=== PATIENT | male | born 1935 | race Caucasian/White ===

== ENCOUNTER → 2024-03-24 07:00 | Outpatient (REF) | payer MEDICARE, SELFPAY ==
[2024-03-24 08:36] LABS: ALT (SGPT) 19 U/L (0-50); AST (SGOT) 27 U/L (17-59); Albumin 4.5 g/dl (3.5-5.0); Alkaline Phosphatase 99 U/L (38-126); Blood Urea Nitrogen 23 mg/dl (9-20); Calcium 10.3 mg/dl (8.4-10.2); Carbon Dioxide 25 mmol/L (22-30); Chloride 107 mmol/L (98-107); Glucose 99 mg/dl (70-99); HDL Cholesterol 60 mg/dl; LDL Cholesterol, Calculated 68 mg/dl; Potassium 4.5 mmol/L (3.5-5.1); Sodium 140 mmol/L (135-145); Total Bilirubin 0.8 mg/dl (0.2-1.3); Total Cholesterol 145 mg/dl (50-199); Total Protein 7.3 g/dl (6.3-8.2); Triglyceride 88 mg/dl (10-149); Very Low Density Lipoprotein 17 mg/dl (0-30); eGFR 52.84
[2024-03-24 08:42] LABS: Microalbumin, Random Urine 2.3 mg/dl (0.6-1.7)
[2024-03-24 09:57] LABS: Glycohemoglobin (HgbA1c) 6.1 % (4.0-5.6)
== END ==
LOC: REG 07:00
PROVIDERS: ATTENDING PHYSICIAN Nurse Practitioner Adult Health; FAMILY PHYSICIAN Internal Medicine Cardiovascular Disease
DX: E11.9 Type 2 diabetes mellitus without complications (principal); I10 Essential (primary) hypertension; E78.00 Pure hypercholesterolemia, unspecified; R80.9 Proteinuria, unspecified; Z00.00 Encounter for general adult medical examination without abnormal findings
CPT/HCPCS: 36415; 80053; 80061; 82043; 83036

== ENCOUNTER → 2024-11-30 08:33 | Outpatient (REF) | payer MEDICARE, SELFPAY ==
[2024-11-30 10:04] LABS: Albumin 4.3 g/dl (3.5-5.0); Carbon Dioxide 26 mmol/L (22-30); Total Protein 7.5 g/dl (6.3-8.2)
[2024-11-30 10:15] LABS: ALT (SGPT) 31 U/L (0-50); AST (SGOT) 29 U/L (17-59); Alkaline Phosphatase 117 U/L (38-126); Blood Urea Nitrogen 27 mg/dl (9-20); Chloride 108 mmol/L (98-107); Glucose 105 mg/dl (70-99); Glycohemoglobin (HgbA1c) 6.4 % (4.0-5.6); HDL Cholesterol 59 mg/dl; LDL Cholesterol, Calculated 63 mg/dl; Potassium 4.9 mmol/L (3.5-5.1); Sodium 142 mmol/L (135-145); Total Bilirubin 1.2 mg/dl (0.2-1.3); Total Cholesterol 143 mg/dl (50-199); Triglyceride 105 mg/dl (10-149); Very Low Density Lipoprotein 21 mg/dl (0-30); eGFR 52.84
== END ==
LOC: REG 08:33
PROVIDERS: ATTENDING PHYSICIAN Nurse Practitioner Adult Health; REFERRING PHYSICIAN Internal Medicine Cardiovascular Disease
DX: E11.9 Type 2 diabetes mellitus without complications (principal); E78.00 Pure hypercholesterolemia, unspecified
CPT/HCPCS: 36415; 80053; 80061; 83036

== ENCOUNTER 2024-12-27 08:48 | Inpatient (IN) | payer MEDICARE, SELFPAY ==
[2024-12-27 09:28] VITALS: BP 132/92
--- NOTE | 2024-12-27 09:30 | PTCARENOTE ---
pt admitted as direct admit to room 2255 for sotolol load. at bedside. pt oriented to room and unit. Pt ambulating in room without difficulty. weight and vitals obtained. PIV placed in right hand, lab work drawn and sent. pt placed on telemetry
monitor. vpaced with pvcs heart rate 70s. EKG obtained. lung sounds clear on room air, sat 98%. active bowel sounds, reports last BM this morning. voids in bathroom without difficulty. see worklist for full nursing assessment and interventions.
[2024-12-27 09:49] LABS: % Basophils 0.2 % (0-2); % Eosinophils 0.8 % (0-6); % Immature Granulocytes 0.5 % (0-0.5); % Lymphocytes 42.3 % (20.5-51.1); % Monocytes 8.6 % (1.7-9.3); % Neutrophils 47.6 % (42.2-75.2); Absolute Eosinophils 0.1 10^3/uL (0-0.7); Absolute Lymphocytes 3.5 10^3/uL (1.2-3.4); Absolute Monocytes 0.7 10^3/uL (0.1-0.6); Hematocrit 44.2 % (39.0-52.0); Hemoglobin 14.6 g/dL (13.0-18.0); Mean Corpuscular Hgb 30.7 pg (27.0-31.0); Mean Corpuscular Volume 92.9 fL (80.0-94.0); Nucleated Red Blood Cells % 0 % (-); Platelet Count 179 10^3/uL (130-400); Red Blood Cell Count 4.76 10^6/uL (4.70-6.10); White Blood Cell Count 8.3 10^3/uL (4.8-10.8)
[2024-12-27 10:03] LABS: ALT (SGPT) 27 U/L (0-50); AST (SGOT) 33 U/L (17-59); Albumin 4.2 g/dl (3.5-5.0); Alkaline Phosphatase 111 U/L (38-126); Blood Urea Nitrogen 27 mg/dl (9-20); Calcium 10.2 mg/dl (8.4-10.2); Carbon Dioxide 24 mmol/L (22-30); Chloride 112 mmol/L (98-107); Glucose 102 mg/dl (70-99); Magnesium 1.6 mg/dl (1.6-2.3); Potassium 4.7 mmol/L (3.5-5.1); Sodium 145 mmol/L (135-145); Total Protein 7.2 g/dl (6.3-8.2); eGFR 58.17
[2024-12-27 10:05] VITALS: BMI 25.3
--- NOTE | 2024-12-27 11:56 | CM ---
Chart reviewed. Patient is independent of ADLS, lives with his in a 2 [address], 0 [facility], 0 DME. Plan is for the patient to return home. CM to follow
--- NOTE | 2024-12-27 13:33 | W.PN.CARDCBS ---
Addendum entered and electronically signed by Davie Ambrose MD 12/27/24 14:47:
Attending addendum: Patient seen and examined. PA note reviewed and findings independently confirmed by me. I discussed with EP and met and examined patient. Briefly, this is an 89-year-old gentleman who was following with Dr. Davie Murphy.
He is chronically maintained on oral anticoagulation. His CrCl is 48 ml/min
Discussed dosing with EP and will dose Sotalol at 80mg once daily
Planned cardioversion: It should be noted that he did miss a single dose of Xarelto on 12/01/24 which is more than 3 weeks ago and should be okay
Need to review old records and follow renal function here to assess CrCl : It is possible we may need to reduce Xarelto to [address] out the door or if CrCl is most consistently below 50 ml/min
Original Note:
Today's Communication / Plan
-
Missed a dose of Xarelto on 12/01/24, but no missed doses in greater than 3 weeks
CrCl 48 so will start sotalol 80 mg daily
57 min in face to face and coordination of care including conferring with EP
Impression / Plan
-
PCP: Jordon Enamorado NP
Cards: Dr. Murphy
Impression:
Direct admission for sotalol loading 12/27/2024
Paroxysmal atrial fibrillation
Chronic Xarelto OAC
s/p Medtronic DC PPM
RV lead with signs of fracture/failure at last generator change 02/20/2016
h/o syncope
Hyperlipidemia
CKD 3a
Echo 01/28/2022: EF 64%, mild posterior MVP, no significant MR, mild TR
Plan:
-Patient came to today as a direct admission for sotalol loading for paroxysmal A-fib. Patient was seen in the office on 12/06/2024 and at that time was in A-fib. Patient has a known history of paroxysmal A-fib, but frequently has to interrupt
OAC for skin cancer procedures. Dr. Murphy discussed with the patient initiating AAD to help reduce his A-fib burden which he felt would improve stroke risk in the long run. Patient reports that he missed a dose of Xarelto on 12/01/2024, but no
missed doses since then.
-CrCl 48 calculated by me including age 89, weight 176 lbs and Cre 1.2. Reviewed with EP and will start sotalol 80 mg daily
-Patient missed a dose of Xarelto 20 mg daily on 12/01/2024, but no missed doses since then.
-Patient reports that he was scheduled for another skin cancer surgery this coming 12/31/24, but he plans to reschedule so that we may perform CV if he fails to convert spontaneously with sotalol loading. Reviewed with patient that he cannot
interrupt OAC for 4 weeks following CV.
Progress Note - Gridcap Machine Operator
Subjective
Date of Service: December 27, 2024
He feels well, no palpitations
Objective
Labs:
12/27/24 09:36
12/27/24 09:36
Labs
Hgb 14.6 g/dL (13.0-18.0) 12/27/24 09:36
Hct 44.2 % (39.0-52.0) 12/27/24 09:36
Plt Count 179 10^3/uL (130-400) 12/27/24 09:36
Sodium 145 mmol/L (135-145) 12/27/24 09:36
Potassium 4.7 mmol/L (3.5-5.1) 12/27/24 09:36
BUN 27 mg/dl (9-20) H 12/27/24 09:36
Creatinine 1.2 mg/dL (0.7-1.3) 12/27/24 09:36
Glucose 102 mg/dl (70-99) H 12/27/24 09:36
Vital Signs and I&O:
Vital Signs
Temp Pulse Resp BP Pulse Ox
98.4 F 74 16 132/92 98
12/27/24 10:39 12/27/24 12:45 12/27/24 10:39 12/27/24 09:28 12/27/24 10:46
Vital Signs
Temp Pulse Resp BP Pulse Ox
98.4 F 74 16 132/92 98
12/27/24 10:39 12/27/24 12:45 12/27/24 10:39 12/27/24 09:28 12/27/24 10:46
Intake & Output
12/25/24 12/26/24 12/27/24 12/28/24
06:59 06:59 06:59 06:59
Intake Total 480 / 480
Balance 480 / 480
Physical Exam
Physical Exam
GEN: NAD. AAOx3
HEENT: EOMI, MMM
LUNGS: RA. Clear anterolaterally without wheeze
CV: Afib on tele. Irreg irreg, no murmur
ABD: soft, BS+, NT, ND
EXT: No clubbing, cyanosis, lesions or edema B/L
NEURO: Gross non-focal
SKIN: No rash
[2024-12-27 15:19] VITALS: BP 123/75
[2024-12-27] MEDS: BETAPACE 80 MG PO (15:20)
[2024-12-27 18:20] VITALS: BP 113/69
[2024-12-27] MEDS: XARELTO 20 MG PO (18:20)
[2024-12-27] MEDS: LIPITOR 10 MG PO (18:20)
[2024-12-27] MEDS: ZESTRIL 5 MG PO (18:20)
[2024-12-27 20:06] VITALS: BP 128/96
[2024-12-27 22:29] VITALS: BP 113/67
[2024-12-27 22:31] VITALS: BP 113/67
--- NOTE | 2024-12-27 22:50 | PTCARENOTE ---
Patient received from previous RN resting in the bed. Offers no complaints at this time. Denies pain, denies feeling lightheaded or dizzy. Vpaced with underlying afib on the monitor. Oxygen saturation 97% on room air. Plan of care discussed. Call
quinonez within reach. Care ongoing.
[2024-12-28] VITALS (8 sets, daily range): BP systolic 98–126; BP diastolic 56–90
[2024-12-28 04:09] LABS: Hematocrit 40.3 % (39.0-52.0); Hemoglobin 13.3 g/dL (13.0-18.0); Mean Corpuscular Hgb 30.5 pg (27.0-31.0); Mean Corpuscular Volume 92.4 fL (80.0-94.0); Mean Platelet Volume 10.2 fL (7.4-10.4); Platelet Count 176 10^3/uL (130-400); Red Blood Cell Count 4.36 10^6/uL (4.70-6.10); Red Cell Dist. Width 14.8 % (11.5-14.5); White Blood Cell Count 8.1 10^3/uL (4.8-10.8)
[2024-12-28 04:27] LABS: Blood Urea Nitrogen 25 mg/dl (9-20); Calcium 9.7 mg/dl (8.4-10.2); Carbon Dioxide 20 mmol/L (22-30); Chloride 111 mmol/L (98-107); Estimated Creatinine Clearance 48 ml/min; Glucose 104 mg/dl (70-99); Potassium 4.4 mmol/L (3.5-5.1); Sodium 140 mmol/L (135-145); eGFR > 60.00
[2024-12-28] MEDS: TOPROL XL 12.5 MG PO (08:15)
[2024-12-28] MEDS: THERAGRAN 1 TABLET PO (08:15)
[2024-12-28] MEDS: BETAPACE 80 MG PO (08:16)
--- NOTE | 2024-12-28 11:41 | W.PN.UPDATE ---
Update Note
Progress Note Update
Called in to see patient by nursing due to acute onset of sharp generalized abdominal pain. He reports the pain is slowly improving. With this he got diaphoretic improved with cold compress. On review of telemetry, remains in atrial fibrillation
with occasional pacing. Blood pressure was marginal initially at 98/64, now improving at 110/74. Last ate around 8�8:30. Last BM was this morning. Will follow. Encouraged patient to let us know if he has recurrence. He has Tylenol as needed
ordered if needed.
--- NOTE | 2024-12-28 13:19 | PTCARENOTE ---
At around 1130, Pt c/o a sharp pain in his abdomen, he then became diaphoretic and said he didn't feel right. Pt assisted back to bed. no ectopy noted on lunchroom monitor. BP rechecked 98/64. Candis Galvan aware. Abdominal discomfort gradually
lessening. It was gone after about 10 min. BP then rechecked 110/74. Pt instructed to call for nurse if pain returns.
--- NOTE | 2024-12-28 14:43 | W.PN.CARDCBS ---
Addendum entered and electronically signed by Guilherme Ramos MD 12/29/24 10:48:
Patient seen, interviewed and examined by me.
Well-appearing, no acute distress
Regular rate and rhythm with normal S1 and S2, no S3 no S4. There is a grade 1/6 apical holosystolic murmur and no rubs. PMI is normally placed.
Lungs are clear to auscultation bilaterally without wheezes rales or rhonchi.
Abdomen soft nontender nondistended with normoactive bowel sounds
Extremities show trace pretibial edema bilaterally no clubbing or cyanosis.
Neurologic exam is grossly nonfocal.
Impression:
Direct admission for sotalol loading 12/27/2024
Paroxysmal atrial fibrillation
Chronic Xarelto OAC
s/p Medtronic DC PPM
RV lead with signs of fracture/failure at last generator change 02/20/2016h/o syncope
Hyperlipidemia
CKD 3a
Echo 01/28/2022: EF 64%, mild posterior MVP, no significant MR, mild TR
Plan:
-ECG from December 28, 2024 finds atypical atrial flutter with evidence of VVI pacing and occasional PVC. Corrected QT interval of paced QRS complex is 495 ms. Given renal function sotalol dosing is daily, 80 mg. Fourth dose of sotalol is planned for
tomorrow.
-Plan for cardioversion tomorrow.
Of note he did miss a dose of Xarelto on December 01, 2024 but has not missed any doses since then.
Cv tomorrow 12/30/24 will be 29 days of uninterrupted DOAC, therefore no need for DARREN and can proceed directly with CV (guidelines recommend minimum 21 days uninterrupted anticoagulation prior to CV)
Maintain uninterrupted oral anticoagulation minimum of 4 weeks following cardioversion, but given [id number] score of 3, lifelong anticoagulation is recommended
Addendum entered and electronically signed by Davie Ambrose MD 12/28/24 15:20:
Attending addendum: Patient seen and examined. PA note reviewed and findings confirmed by me.
ECG reviewed: More intrinsic conduction today as compared to yesterday where 100% paced rhythm noted
Continue Sotalol 80 mg daily and follow ECG
Planned Cardioversion of this week +/- DARREN
Original Note:
Today's Communication / Plan
-
Cont sotalol 80 mg daily
Planning for CV and +/- DARREN on following 4th dose on
Impression / Plan
-
PCP: Jordon Enamorado NP
Cards: Dr. Murphy
Impression:
Direct admission for sotalol loading 12/27/2024
Paroxysmal atrial fibrillation
Chronic Xarelto OAC
s/p Medtronic DC PPM
RV lead with signs of fracture/failure at last generator change 02/20/2016
h/o syncope
Hyperlipidemia
CKD 3a
Echo 01/28/2022: EF 64%, mild posterior MVP, no significant MR, mild TR
Plan:
-QTc stable at 495 ms by ECG 12/28/2024 following second dose of sotalol given on Friday. Third dose of sotalol is scheduled for Friday. Will plan to keep patient for for loading doses of sotalol 80 mg daily
-CV +/-DARREN on . Patient missed a dose of Xarelto 20 mg daily on 12/01/2024, but no missed doses since then.
-Patient reports that he was scheduled for another skin cancer surgery this coming 12/31/24, but he plans to reschedule so that we may perform CV if he fails to convert spontaneously with sotalol loading. Reviewed with patient that he cannot
interrupt OAC for 4 weeks following CV.
-Episode of abdominal pain earlier on 12/28/2024 noted. Labs from 12/28/2024 reviewed and are unremarkable and also vital signs. Will follow, no specific intervention planned at this time
HPI: Patient came to today as a direct admission for sotalol loading for paroxysmal A-fib. Patient was seen in the office on 12/06/2024 and at that time was in A-fib. Patient has a known history of paroxysmal A-fib, but frequently has to
interrupt OAC for skin cancer procedures. Dr. Murphy discussed with the patient initiating AAD to help reduce his A-fib burden which he felt would improve stroke risk in the long run. Patient reports that he missed a dose of Xarelto on 12/01/2024,
but no missed doses since then.
Progress Note - Flow Match Sofa Cutter
Subjective
Date of Service: December 28, 2024
He had abdominal pain earlier today
Objective
Labs:
12/28/24 03:38
12/28/24 03:38
Labs
Hgb 13.3 g/dL (13.0-18.0) 12/28/24 03:38
Hct 40.3 % (39.0-52.0) 12/28/24 03:38
Plt Count 176 10^3/uL (130-400) 12/28/24 03:38
Sodium 140 mmol/L (135-145) 12/28/24 03:38
Potassium 4.4 mmol/L (3.5-5.1) 12/28/24 03:38
BUN 25 mg/dl (9-20) H 12/28/24 03:38
Creatinine 1.1 mg/dL (0.7-1.3) 12/28/24 03:38
Glucose 104 mg/dl (70-99) H 12/28/24 03:38
Vital Signs and I&O:
Vital Signs
Temp Pulse Resp BP Pulse Ox
97.9 F 70 18 110/74 95
12/28/24 11:18 12/28/24 14:00 12/28/24 11:18 12/28/24 11:38 12/28/24 11:18
Vital Signs
Temp Pulse Resp BP Pulse Ox
97.9 F 70 18 110/74 95
12/28/24 11:18 12/28/24 14:00 12/28/24 11:18 12/28/24 11:38 12/28/24 11:18
Intake & Output
12/26/24 12/27/24 12/28/24 12/29/24
06:59 06:59 06:59 06:59
Intake Total 960 / 960
Balance 960 / 960
Physical Exam
Physical Exam
GEN: NAD. AAOx3
HEENT: EOMI, MMM
LUNGS: RA. No wheeze
CV: Afib on tele.
ABD: ND
EXT: No edema B/L
NEURO: Gross non-focal
SKIN: No rash
[2024-12-28] MEDS: XARELTO 20 MG PO (17:34)
[2024-12-28] MEDS: ZESTRIL 5 MG PO (17:34)
[2024-12-28] MEDS: LIPITOR 10 MG PO (17:35)
--- NOTE | 2024-12-28 21:16 | PTCARENOTE ---
Received pt @ change of shift. AAOx3. VSS. Discussed plan of care for evening. Pt verbalized understanding. Call quinonez in reach.
[2024-12-29] VITALS (7 sets, daily range): BP systolic 100–146; BP diastolic 65–92
[2024-12-29 05:12] LABS: Blood Urea Nitrogen 32 mg/dl (9-20); Calcium 9.7 mg/dl (8.4-10.2); Carbon Dioxide 21 mmol/L (22-30); Chloride 112 mmol/L (98-107); Estimated Creatinine Clearance 44 ml/min; Glucose 103 mg/dl (70-99); Potassium 4.7 mmol/L (3.5-5.1); Sodium 140 mmol/L (135-145); eGFR 58.17
[2024-12-29] MEDS: THERAGRAN 1 TABLET PO (08:23)
[2024-12-29] MEDS: BETAPACE 80 MG PO (08:23)
[2024-12-29] MEDS: TOPROL XL 12.5 MG PO (08:24)
--- NOTE | 2024-12-29 08:33 | W.PN.CARDCBS ---
Addendum entered and electronically signed by Adrienne Dorado PA-C 12/30/24 08:10:
~~REPORT ADDENDUM~~
Patient seen, interviewed and examined by me.
Well-appearing, no acute distress
Regular rate and rhythm with normal S1 and S2, no S3 no S4. There is a grade 1/6 apical holosystolic murmur and no rubs. PMI is normally placed.
Lungs are clear to auscultation bilaterally without wheezes rales or rhonchi.
Abdomen soft nontender nondistended with normoactive bowel sounds
Extremities show trace pretibial edema bilaterally no clubbing or cyanosis.
Neurologic exam is grossly nonfocal.
Impression:
Direct admission for sotalol loading 12/27/2024
Paroxysmal atrial fibrillation
Chronic Xarelto OAC
s/p Medtronic DC PPM
RV lead with signs of fracture/failure at last generator change 02/20/2016h/o syncopeHyperlipidemia
CKD 3a
Echo 01/28/2022: EF 64%, mild posterior MVP, no significant MR, mild TR
Plan:
-ECG from December 28, 2024 finds atypical atrial flutter with evidence of VVI pacing and occasional PVC. Corrected QT interval of paced QRS complex is 495 ms. Given renal function sotalol dosing is daily, 80 mg. Fourth dose of sotalol is planned for
tomorrow.
-Plan for cardioversion tomorrow.
Of note he did miss a dose of Xarelto on December 01, 2024 but has not missed any doses since then.
Cv tomorrow 12/30/24 will be 29 days of uninterrupted DOAC, therefore no need for DARREN and can proceed directly with CV (guidelines recommend minimum 21 days uninterrupted anticoagulation prior to CV)
Maintain uninterrupted oral anticoagulation minimum of 4 weeks following cardioversion, but given [id number] score of 3, lifelong anticoagulation is recommended
Addendum Dictated by: Guilherme Ramos MD
Addendum Dictated Date & Time: 12/29/24
Addendum Co-Signer: Guilherme Ramos MD
Addendum Co-Sign Date & Time:12/29/241047
Addendum Signed by: Guilherme Ramos MD
Addendum Signed Date & Time: 12/29/241047
Also, patient takes Xarelto, not Eliquis as was stated in the 'Today's Communication/Plan' from 12/29/24
Addendum entered and electronically signed by Adrienne Dorado PA-C 12/29/24 10:17:
.
Original Note:
Today's Communication / Plan
-
3rd dose of sotalol 80 mg daily today
CV after 4th dose of sotalol tomorrow, +/- DARREN due to missed Eliquis dose on 12/01/24
Impression / Plan
-
PCP: Jordon Enamorado NP
Cards: Dr. Murphy
Impression:
Direct admission for sotalol loading 12/27/2024
Paroxysmal atrial fibrillation
Chronic Xarelto OAC
s/p Medtronic DC PPM
RV lead with signs of fracture/failure at last generator change 02/20/2016
h/o syncope
Hyperlipidemia
CKD 3a
Echo 01/28/2022: EF 64%, mild posterior MVP, no significant MR, mild TR
Plan:
-QTc stable was 495 ms by ECG 12/28/2024 after 2nd dose of sotalol given on Friday. 3rd dose of sotalol is scheduled for Friday. Will plan to keep patient for 4 loading doses of sotalol 80 mg daily, last dose will be .
-Tele reviewed by me 12/29/24 and remains in Afib.
-CV +/-DARREN on as patient missed a dose of Xarelto 20 mg daily on 12/01/2024, but no missed doses since then.
-Patient reports that he was scheduled for another skin cancer surgery this coming 12/31/24, but he plans to reschedule so that we may perform CV if he fails to convert spontaneously with sotalol loading. Reviewed with patient that he cannot
interrupt OAC for 4 weeks following CV.
-Abdominal pain 12/28/24, but no recurrence.
HPI: Patient came to today as a direct admission for sotalol loading for paroxysmal A-fib. Patient was seen in the office on 12/06/2024 and at that time was in A-fib. Patient has a known history of paroxysmal A-fib, but frequently has to
interrupt OAC for skin cancer procedures. Dr. Murphy discussed with the patient initiating AAD to help reduce his A-fib burden which he felt would improve stroke risk in the long run. Patient reports that he missed a dose of Xarelto on 12/01/2024,
but no missed doses since then.
Progress Note - Embossing Unit Operator
Subjective
Date of Service: December 29, 2024
He feels well, no more abdominal pain
Objective
Labs:
12/28/24 03:38
12/29/24 04:06
Labs
Hgb 13.3 g/dL (13.0-18.0) 12/28/24 03:38
Hct 40.3 % (39.0-52.0) 12/28/24 03:38
Plt Count 176 10^3/uL (130-400) 12/28/24 03:38
Sodium 140 mmol/L (135-145) 12/29/24 04:06
Potassium 4.7 mmol/L (3.5-5.1) 12/29/24 04:06
BUN 32 mg/dl (9-20) H 12/29/24 04:06
Creatinine 1.2 mg/dL (0.7-1.3) 12/29/24 04:06
Glucose 103 mg/dl (70-99) H 12/29/24 04:06
Vital Signs and I&O:
Vital Signs
Temp Pulse Resp BP Pulse Ox
98.4 F 71 16 125/92 97
12/29/24 04:02 12/29/24 08:23 12/29/24 04:02 12/29/24 08:23 12/29/24 04:02
Vital Signs
Temp Pulse Resp BP Pulse Ox
98.4 F 71 16 125/92 97
12/29/24 04:02 12/29/24 08:23 12/29/24 04:02 12/29/24 08:23 12/29/24 04:02
Intake & Output
12/27/24 12/28/24 12/29/24 12/30/24
06:59 06:59 06:59 06:59
Intake Total 960 / 960
Balance 960 / 960
Physical Exam
Physical Exam
GEN: NAD. AAOx3
HEENT: EOMI
LUNGS: RA. No wheeze
CV: Afib on tele.
ABD: ND
EXT: No edema B/L
NEURO: Gross non-focal
SKIN: No rash
--- NOTE | 2024-12-29 15:30 | PTCARENOTE ---
Pt w/ QTc of 526 after 3rd dose of sotolol. MD aware. No new orders noted. Will monitor.
[2024-12-29] MEDS: XARELTO 20 MG PO (17:43)
[2024-12-29] MEDS: LIPITOR 10 MG PO (17:43)
[2024-12-29] MEDS: ZESTRIL 5 MG PO (17:43)
--- NOTE | 2024-12-29 22:59 | PTCARENOTE ---
Received patient at change of shift. V paced on the monitor with underlying A flutter, HR in the 70s. No complaints from pt at this time, call quinonez within reach.
[2024-12-30 02:20] VITALS: BP 109/73
[2024-12-30 07:21] VITALS: BP 121/95
[2024-12-30] MEDS: BETAPACE 80 MG PO (08:08)
[2024-12-30] MEDS: TOPROL XL 12.5 MG PO (08:09)
--- NOTE | 2024-12-30 08:09 | W.PN.CARDCBS ---
Addendum entered and electronically signed by Edi Eaton MD 12/30/24 10:16:
I saw and examined the patient.
The Cupola Tender Helper's note was reviewed and I agree with the note.
Comment:
GEN: No distress, awake, Ox3
HEENT: supple, anicteric, mmm
LUNGS: CTA, no wheezes/rales
CV: Reg, S1/S2, 1/6 syst LSB, no gallop
ABD: soft, BS+, NT/ND
EXT: No edema
NEURO: Gross non-focal
SKIN: No rash
Plan:
back in sinus rhythm. QTc 508msec and stable
Cont Sotalol 80mg daily
cont Xarelto
For discharge today
Original Note:
Today's Communication / Plan
-
CV today
4th dose of sotalol today
Check ECG when back in [facility]
D/C to home later today
Impression / Plan
-
PCP: Jordon Enamorado NP
Cards: Dr. Murphy
Impression:
Direct admission for sotalol loading 12/27/2024
Paroxysmal atrial fibrillation
Chronic Xarelto OAC
s/p Medtronic DC PPM
RV lead with signs of fracture/failure at last generator change 02/20/2016
h/o syncope
Hyperlipidemia
CKD 3a
Echo 01/28/2022: EF 64%, mild posterior MVP, no significant MR, mild TR
Plan:
-QTc 526 ms after 3rd dose on Friday. 4th dose scheduled for . Check ECG, ordered by me.
-CV on . Patient missed a dose of Xarelto 20 mg daily on 12/01/2024, but no missed doses since then and it has been greater than 3 weeks so will proceed without DARREN.
-Confirmed with patient again 12/30/24 that he cannot interrupt OAC for the next 4 weeks and so he rescheduled his Moh's surgery for Friday.
-Abdominal pain 12/28/24, but no recurrence.
-Likely d/c to home 12/30/24
HPI: Patient came to today as a direct admission for sotalol loading for paroxysmal A-fib. Patient was seen in the office on 12/06/2024 and at that time was in A-fib. Patient has a known history of paroxysmal A-fib, but frequently has to
interrupt OAC for skin cancer procedures. Dr. Murphy discussed with the patient initiating AAD to help reduce his A-fib burden which he felt would improve stroke risk in the long run. Patient reports that he missed a dose of Xarelto on 12/01/2024,
but no missed doses since then.
Progress Note - Building Service Worker
Subjective
Date of Service: December 30, 2024
Feels great, says he has been sleeping very well
Objective
Labs:
12/28/24 03:38
12/29/24 04:06
Labs
Hgb 13.3 g/dL (13.0-18.0) 12/28/24 03:38
Hct 40.3 % (39.0-52.0) 12/28/24 03:38
Plt Count 176 10^3/uL (130-400) 12/28/24 03:38
Sodium 140 mmol/L (135-145) 12/29/24 04:06
Potassium 4.7 mmol/L (3.5-5.1) 12/29/24 04:06
BUN 32 mg/dl (9-20) H 12/29/24 04:06
Creatinine 1.2 mg/dL (0.7-1.3) 12/29/24 04:06
Glucose 103 mg/dl (70-99) H 12/29/24 04:06
Vital Signs and I&O:
Vital Signs
Temp Pulse Resp BP Pulse Ox
97.9 F 72 18 111/71 99
12/30/24 02:22 12/29/24 23:00 12/30/24 02:22 12/29/24 22:40 12/30/24 02:22
Vital Signs
Temp Pulse Resp BP Pulse Ox
97.9 F 72 18 111/71 99
12/30/24 02:22 12/29/24 23:00 12/30/24 02:22 12/29/24 22:40 12/30/24 02:22
Intake & Output
12/28/24 12/29/24 12/30/24 12/31/24
06:59 06:59 06:59 06:59
Intake Total 960 / 960 480 / 480
Balance 960 / 960 480 / 480
Physical Exam
Physical Exam
GEN: NAD. AAOx3
HEENT: EOMI
LUNGS: RA. No wheeze
CV: Afib on tele.
ABD: ND
EXT: No edema B/L
NEURO: Gross non-focal
SKIN: No rash
--- NOTE | 2024-12-30 09:54 | ITS.CL.CARDI ---
Photographic Platemaker - Cardioversion
Cardioversion
Procedure Report:
Date of Procedure: 12/30/24
Procedure: Cardioversion
Indication: Symptomatic atrial fibrillation
Performing Physician: Edi Eaton MD
Technique: The patient was brought to the holding area. Signed informed consent was obtained. A time out was called and performed. The patient was anesthetized by the anesthesia service. Anticoagulation status was reviewed and appropriate. R2 pads
were placed anteriorly and posteriorly. A 200 J synchronized biphasic shock restored normal sinus rhythm without significant bradycardia. There were no complications.
Conclusion: Uncomplicated cardioversion from atrial fibrillation to sinus rhythm.
Recommendation: Routine post cardioversion care. Continue termite control service representative anticoagulation.
[2024-12-30 10:26] VITALS: BP 130/86
--- NOTE | 2024-12-30 11:00 | PTCARENOTE ---
Received pt post CV. Pt's ECG notes 100% AV paced rhythm w/ underlying a fib. Will monitor.
[2024-12-30 11:33] VITALS: BP 136/83
[2024-12-30] MEDS: THERAGRAN 1 TABLET PO (12:30)
--- NOTE | 2024-12-30 12:50 | W.DS.TRANS ---
DC Summary - Primary Education Professor
-
Discharge Instructions:
Discharge Diagnosis/Procedures Sotalol load for paroxysmal atrial fibrillation
Diet Low Fat
Activity As tolerated
Driving Restrictions No driving for 24 hours
Bathing Restrictions None
Instructions:
Stand-Alone Forms: DC Instructions- Cath/EP Lab
Changes to Home Medications: Yes
Discharge Medications:
DC Medications w/original date entered in [employer]
atorvastatin 10 mg tablet 10 mg PO QPM 10/17/10
metoprolol succinate 25 mg tablet,extended release 24 hr 12.5 mg PO DAILY 02/20/16
lisinopril 5 mg tablet 5 mg PO QPM 01/25/22
multivitamin with folic acid 400 mcg tablet (Tab-A-Mickie) 1 tab PO DAILY 01/25/22
rivaroxaban 20 mg tablet (Xarelto) 20 mg PO QPM 01/25/22
sotalol 80 mg tablet 80 mg PO DAILY Arrhythmia #30 tabs 12/30/24
Home Medication Changes
New to sotalol
Pending Results: No
== END 2024-12-30 14:07 | disposition home or self-care (01) | DRG 310 ==
LOC: IVU 08:48
PROVIDERS: Internal Medicine Cardiovascular Disease; Physician Assistant Medical; ADMITTING PHYSICIAN Nuclear Medicine Nuclear Cardiology; FAMILY PHYSICIAN Nurse Practitioner Adult Health
PROC: 5A2204Z Restoration of Cardiac Rhythm, Single (ICD-10-PCS; 2024-12-30)
DX: I48.0 Paroxysmal atrial fibrillation (principal); Z79.01 Long term (current) use of anticoagulants; Z95.0 Presence of cardiac pacemaker; E78.5 Hyperlipidemia, unspecified; I48.92 Unspecified atrial flutter; N18.31 Chronic kidney disease, stage 3a
CPT/HCPCS: 80048; 80053; 83735; 85025; 85027; 92960; 93005

== ENCOUNTER → 2025-02-28 06:33 | Outpatient (REF) | payer MEDICARE, SELFPAY ==
[2025-02-28 08:08] LABS: ALT (SGPT) 24 U/L (0-50); AST (SGOT) 29 U/L (17-59); Albumin 4.2 g/dl (3.5-5.0); Alkaline Phosphatase 103 U/L (38-126); Blood Urea Nitrogen 22 mg/dl (9-20); Calcium 9.9 mg/dl (8.4-10.2); Carbon Dioxide 28 mmol/L (22-30); Chloride 108 mmol/L (98-107); Direct Bilirubin 0.2 mg/dl (0.0-0.4); Glucose 102 mg/dl (70-99); HDL Cholesterol 48 mg/dl; LDL Cholesterol, Calculated 88 mg/dl; Potassium 4.9 mmol/L (3.5-5.1); Sodium 141 mmol/L (135-145); Total Bilirubin 0.8 mg/dl (0.2-1.3); Total Cholesterol 165 mg/dl (50-199); Total Protein 6.9 g/dl (6.3-8.2); Triglyceride 149 mg/dl (10-149); Very Low Density Lipoprotein 29 mg/dl (0-30); eGFR 57.81
[2025-02-28 09:20] LABS: Vitamin D, 25-OH*** 40.9 ng/mL (30-80)
[2025-02-28 11:21] LABS: Glycohemoglobin (HgbA1c) 6.6 % (4.0-5.6)
== END ==
LOC: REG 06:33
PROVIDERS: ATTENDING PHYSICIAN Internal Medicine
DX: E11.9 Type 2 diabetes mellitus without complications (principal); E78.00 Pure hypercholesterolemia, unspecified; I10 Essential (primary) hypertension; E78.2 Mixed hyperlipidemia
CPT/HCPCS: 36415; 80053; 80061; 82248; 82306; 83036

== ENCOUNTER → 2025-03-14 10:05 | Outpatient (REF) | payer MEDICARE, SELFPAY | LOC: RCS 10:05 | PROVIDERS: ATTENDING PHYSICIAN Internal Medicine Cardiovascular Disease; FAMILY PHYSICIAN Internal Medicine | DX: I48.0 Paroxysmal atrial fibrillation (principal); I34.1 Nonrheumatic mitral (valve) prolapse; I45.2 Bifascicular block | CPT/HCPCS: 93306 ==

== ENCOUNTER → 2025-07-20 07:05 | Outpatient (REF) | payer MEDICARE, SELFPAY ==
[2025-07-20 08:01] LABS: ALT (SGPT) 27 U/L (0-50); AST (SGOT) 28 U/L (17-59); Albumin 4.5 g/dl (3.5-5.0); Alkaline Phosphatase 91 U/L (38-126); Glucose 104 mg/dl (70-99); HDL Cholesterol 50 mg/dl; LDL Cholesterol, Calculated 91 mg/dl; Total Protein 7.5 g/dl (6.3-8.2); Very Low Density Lipoprotein 39 mg/dl (0-30)
[2025-07-20 08:39] LABS: Glycohemoglobin (HgbA1c) 6.0 % (4.0-5.6)
== END ==
LOC: REG 07:05
PROVIDERS: ATTENDING PHYSICIAN Internal Medicine
DX: E11.9 Type 2 diabetes mellitus without complications (principal); E66.3 Overweight; E78.00 Pure hypercholesterolemia, unspecified; I10 Essential (primary) hypertension
CPT/HCPCS: 36415; 80061; 80076; 82947; 83036